=== PATIENT | male | born 1970 | race Caucasian/White ===

== ENCOUNTER 2016-11-11 16:47 | Emergency (ER) | payer MEDICARE | END 2016-11-11 19:50 | disposition home or self-care (01) | LOC: ER 16:47 | DX: J44.9 Chronic obstructive pulmonary disease, unspecified (principal); M79.81 Nontraumatic hematoma of soft tissue; E87.5 Hyperkalemia; F17.210 Nicotine dependence, cigarettes, uncomplicated; I10 Essential (primary) hypertension; I48.91 Unspecified atrial fibrillation; Z91.041 Radiographic dye allergy status; Z79.899 Other long term (current) drug therapy | CPT/HCPCS: 36415 ==